=== PATIENT | female | born 2000 | race Hispanic/Latino ===

== ENCOUNTER 2025-06-17 23:31 | Emergency (ER) | payer OTHER ==
[~2025-06-17] VITALS: Ht 157.5 cm; Wt 95.7 kg
[2025-06-18 00:20] LABS: BASOPHILS % 0.4 % (0.0-1.0); EOSINOPHILS % 0.8 % (0.0-6.0); LYMPHOCYTES % 36.9 % (18.0-39.1); MONOCYTES % 6.1 % (4.4-11.3); NEUTROPHILS % 55.5 % (38.7-80.0); RED CELL DISTRIBUTION WIDTH 13.3 % (11.7-14.4)
[2025-06-18 00:34] LABS: EST GLOMERULAR FILTRATION RATE 125.0 ML/MIN (>=60)
[2025-06-18 02:10] VITALS: PULSE 79; RESP 17; TEMP 98.5
[2025-06-18 02:19] VITALS: BP 129/89; PULSE 82; RESP 17; TEMP 98.2; O2SAT 100
== END 2025-06-18 02:15 | disposition home or self-care (01) ==
LOC: ER 06-18 00:08
DX: R05.9 Cough, unspecified (principal); R07.89 Other chest pain
CPT/HCPCS: 36415; 71045; 80053; 84484; 84702; 85025; 85379; 93005; 99284